=== PATIENT | male | born 1975 | race Caucasian/White ===

== ENCOUNTER 2019-04-18 15:21 | Emergency (ER) | payer SELFPAY ==
--- NOTE | ~2019-04-18 | XR_ITS ---
EXAMINATION: XR foot LT min 3V DATE: 04/18/2019 16:44 INDICATION: Removal of foreign body from the foot TECHNIQUE: Dorsoplantar, lateral, and 2 oblique views of the left foot were obtained. COMPARISON: 1541 hours FINDINGS: The previously described nail has been removed from the navicular bone. There is a lucency in the bone at the previous location of the nail. A 7 mm linear density persists in the medial aspect of the bone. There is adjacent soft tissue swelling of the medial foot. No additional osseous findin gs are evident. IMPRESSION: 1. Removal of the nail from the navicular with 7 mm retained radiopaque foreign body. No fracture joe ntified. Reviewed, dictated and finalized at location A. [employer] [employer] IMPRESSION: 1. Removal of the nail from the navicular with 7 mm retained radiopaque foreign body. No fracture identified.
--- NOTE | ~2019-04-18 | XR_ITS ---
EXAMINATION: XR foot LT min 3V DATE: 04/18/2019 15:49 INDICATION: Left foot pain TECHNIQUE: Dorsoplantar, lateral, and 2 oblique views of the left foot were obtained. COMPARISON: None. FINDINGS: A nail enters the medial foot and projects in the navicular. There is no associated fractur e. Bone alignment is normal. There is mild osteoarthritis at the first metatarsophalangeal joint. IMPRESSION: 1. Nail entering the medial foot and projecting in the navicular without associated fracture. Reviewed, dictated and finalized at location A. [employer] IMPRESSION: 1. Nail entering the medial foot and projecting in the navicular without associ ated fracture.
[2019-04-18 15:24] VITALS: BP 125/79; PULSE 96; RESP 18; TEMP 36.7; O2SAT 100
--- NOTE | 2019-04-18 15:55 | ED.GENADULT ---
HPI - General Adult General Chief complaint: Skin/Abscess/Foreign Body <Justen Miles PA-C - Last Filed: 04/18/19 17:06> Stated complaint: NAIL IN FOOT <Justen Miles PA-C - Last Filed: 04/18/19 17:06> Time Seen by Provider: 04/18/19 15:28 <Justen Miles PA-C - Last Filed: 04/18/19 17:06> Source: patient <Justen Miles PA-C - Last Filed: 04/18/19 17:06> Mode of arrival: ambulatory <Justen Miles PA-C - Last Filed: 04/18/19 17:06> Limitations: no limitations <COLIN Rabago Last Filed: 04/18/19 17:06> History of Present Illness HPI narrative: Patient is a 44-year-old male who presents to emergency department for evaluation of foreign body to the left foot was using a nail gun when it discharged into the medial aspect of the left midfoot ankle region where he has moderate aching pain at this time presents per private vehicle is unsure as to tetanus status. Patient denies other injuries or complaints and on arrival is in no distress <Justen Miles PA-C - Last Filed: 04/18/19 17:06> Related Data Allergies/adverse reactions: Allergies Allergy/AdvReac Type Severity Reaction Status Date / Time No Known Allergies Allergy Verified 04/18/19 15:32 <Justen Miles PA-C - Last Filed: 04/18/19 17:06> Review of Systems Review of Systems: Narrative: CONSTITUTIONAL: Denies fever, chills, or sweats. SKIN: Foreign body puncture wound left foot MUSCULOSKELETAL: Positive for left foot pain NEUROLOGIC: Denies numbness, or weakness. <Justen Miles PA-C - Last Filed: 04/18/19 17:06> PMFSH Social History Social History: Social History Gender identity (if verbalized by the patient): Male <COLIN Rabago Last Filed: 04/18/19 17:06> Exam Narrative: Exam Narrative: GENERAL: Well-appearing, well-nourished, and in no acute distress. HEAD: Normocephalic, atraumatic. EYES: PERRLA and EOMI. ENT: Nares clear, no rhinorrhea or epistaxis. Mucous membranes moist. CHEST: Clear to auscultation. No respiratory distress. No wheezes rales or rhonchi HEART: Regular rate and rhythm. No murmur heard. Normal peripheral pulses. EXTREMITIES: Normal range of motion. No edema. Foreign body with nail in the medial aspect of the left midfoot SKIN: Warm, dry, no rash. NEURO: No focal deficits. Alert and oriented x3. Neurovascularly intact PSYCH: Normal mood and affect. <COLIN Rabago Last Filed: 04/18/19 17:06> Course Consultations Consultation #1: Spoke with Dr. Cole orthopedic surgery 2 times and regarding this case the first and when she went of the nail to be manually removed secondarily would like the patient to follow in clinic for reevaluation does not recommend looking for the foreign body at this time and will follow patient in clinic <COLIN Rabago Last Filed: 04/18/19 17:06> Date: 04/18/19 <COLIN Rabago Last Filed: 04/18/19 17:06> Vital Signs Vital signs: Vital Signs Temperature 98.1 F 04/18/19 15:24 Pulse Rate 96 04/18/19 15:24 Respiratory Rate 18 04/18/19 15:24 Blood Pressure 125/79 04/18/19 15:24 Pulse Oximetry 100 04/18/19 15:24 Temperature 98.1 F 04/18/19 15:24 Pulse Rate 96 04/18/19 15:24 Respiratory Rate 18 04/18/19 15:24 Blood Pressure 125/79 04/18/19 15:24 Pulse Oximetry 100 04/18/19 15:24 <COLIN Rabago Last Filed: 04/18/19 17:06> Vital Signs Temperature 98.1 F 04/18/19 15:24 Pulse Rate 96 04/18/19 15:24 Respiratory Rate 18 04/18/19 15:24 Blood Pressure 125/79 04/18/19 15:24 Pulse Oximetry 100 04/18/19 15:24 Temperature 98.1 F 04/18/19 15:24 Pulse Rate 96 04/18/19 15:24 Respiratory Rate 18 04/18/19 15:24 Blood Pressure 125/79 04/18/19 15:24 Pulse Oximetry 100 04/18/19 15:24 <Nadia Rubio MD - Last Filed: 04/18/
[2019-04-18] MEDS: MORPHINE SULFATE 4 MG/ML INJ IV PUSH (15:59)
[2019-04-18] MEDS: TETANUS,DIPHTHERIA,AC PERTUSSIS ADULT 0.5 ML (ADACEL) IM (16:05)
[2019-04-18] MEDS: ceFAZolin 2 GM/D5W 50 ML 2 GM/50 ML BAG IVPB (16:06)
== END 2019-04-18 17:58 | disposition home or self-care (01) ==
PROVIDERS: Emergency Provider General Practice
DX: S91.342A Puncture wound with foreign body, left foot, initial encounter (principal); W29.4XXA Contact with nail gun, initial encounter; Z23 Encounter for immunization
CPT/HCPCS: 28190; 28192; 73630; 90471; 90715; 96374; 96375; 99284; J0690; J2270

== ENCOUNTER 2020-12-24 14:15 | Emergency (ER) | payer OTHER, SELFPAY ==
[2020-12-24 14:40] VITALS: BP 114/75; PULSE 63; RESP 16; TEMP 36.9; O2SAT 100
--- NOTE | 2020-12-24 15:13 | ED.WOUNDLAC ---
HPI - Wound/Laceration General Chief Complaint: Wound/Laceration Stated Complaint: Puncture Wound to Right Foot Source: patient and family Mode of arrival: ambulatory Limitations: no limitations History of Present Illness HPI narrative: Preet is a 45-year-old male patient who [facility]. Patient states the pitchfork went into his right foot between the first and second toe this AM. Patient states the pitchfork has been used before. cleaned the foot with peroxide and water at home. Patient denies any numbness or tingling to the area. Related Data Allergies Allergy/AdvReac Type Severity Reaction Status Date / Time No Known Allergies Allergy Verified 12/24/20 14:20 Review of Systems Review of Systems: CONSTITUTIONAL: Denies body aches, fever, chills, or sweats. EYES: Denies visual changes, redness, or discharge. ENT: Denies rhinorrhea, congestion, sore throat, or otalgia. CARDIOVASCULAR: Denies chest pain, palpitations, or edema. RESPIRATORY: Denies cough or dyspnea. GASTROINTESTINAL: Denies abdominal pain, nausea, vomiting, or diarrhea. GENITOURINARY: Denies dysuria or hematuria. SKIN: Denies rash, itching, or wounds. MUSCULOSKELETAL: Denies back pain, joint pain. pain right 1/2 toe, minimal bleeding to area. NEUROLOGIC: Denies headache, numbness, tingling, or weakness. PSYCH: Denies depression or anxiety. All systems reviewed & are unremarkable except as noted in HPI and below PMFSH Social History Social History Smoking status: Never smoker Alcohol intake: current Gender identity (if verbalized by the patient): Male Comments At time of signature, I have reviewed and agree with nursing past medical, surgical, social and family history unless otherwise noted. Please see nursing chart for further information. There is no relevant family history pertinent to the presenting complaint Exam Narrative: GENERAL: Well-appearing, well-nourished, and in no acute distress. HEAD: Normocephalic, atraumatic. EYES: EOMI. No redness or drainage. Conjunctivae normal. ENT: Mucous membranes pink and moist. Nares clear. No rhinorrhea. NECK: Normal AROM. Supple. MUSCULOSKELETAL: No bony tenderness. EXTREMITIES: Normal range of motion. No edema. SKIN: Warm, dry, no rash. Capillary refill normal. Normal skin turgor; puncture wound between right 1/2 toe, sensation and movement intact. Approx. 0.5 cm round open puncture, bleeding controlled. NEURO: No focal deficits. Alert and oriented x3. Gait steady. PSYCH: Normal affect. No signs of depression or anxiety. Course Vital Signs Vital signs: Vital Signs Temperature 36.9 C 12/24/20 14:40 Pulse Rate 63 12/24/20 14:40 Respiratory Rate 16 12/24/20 14:40 Blood Pressure 114/75 12/24/20 14:40 Pulse Oximetry 100 12/24/20 14:40 Temperature 36.9 C 12/24/20 14:40 Pulse Rate 63 12/24/20 14:40 Respiratory Rate 16 12/24/20 14:40 Blood Pressure 114/75 12/24/20 14:40 Pulse Oximetry 100 12/24/20 14:40 Reviewed Procedures Other Procedure Procedure 1: Other Procedure: Right foot puncture wound irrigated with [employer] and saline, 20ml. Wound closed with steri strips x 2. MDM - Wound/Laceration MDM Narrative Medical decision making narrative: Patient has puncture wound between right first and second toes. Skin was thick hard and discolored. 2 Steri-Strips placed to maintain hemostasis. Differential Diagnosis Differential diagnosis: Likely laceration, abrasion, avulsion of skin and other Medical Records Attestation: I reviewed the patient's medical records. Critical Care Time Critical Care Time Critical Care Time: No Discharge Plan Discharge Clinical Impression: Puncture wound of foot Qualifiers: Encounter type: initial encounter Laterality: right Qualified Code(s): S91.331A - Puncture wound without foreign body, right foot, initial encounter
== END 2020-12-24 15:40 | disposition home or self-care (01) ==
PROVIDERS: Emergency Provider Nurse Practitioner Family; PCP Physician Assistant
DX: S91.341A Puncture wound with foreign body, right foot, initial encounter (principal); W22.8XXA Striking against or struck by other objects, initial encounter
CPT/HCPCS: 99213; G0463